=== PATIENT | female | born 1970 | race Caucasian/White ===

== ENCOUNTER 2016-12-13 14:26 | Observation (INO) | payer OTHER ==
[~2016-12-13] VITALS: Ht 160 cm; Wt 76.8 kg
[2016-12-13 15:12] LABS: HEMATOCRIT 39.2 % (36.0-46.0); MCH 27.9 PG (29.0-34.0); MCHC 32.9 G/DL (30.0-36.0); MCV 84.7 FL (83-99); MEAN PLAT.VOLUME 9.5 uM^3 (9.5-12.4); PLATELET COUNT 285 K/uL (156-360); RBC DIS.WIDTH-CV 12.4 % (11.8-14.6); RBC DIS.WIDTH-SD 37.6 % (39-53); RED BLOOD COUNT 4.63 M/uL (3.80-5.20); WHITE BLOOD COUNT 12.4 K/uL (4.1-10.2)
[2016-12-13 15:22] LABS: CHLORIDE 105 mEq/L (99-109); POTASSIUM 3.7 mEq/L (3.7-5.4); SODIUM 139 mEq/L (136-147)
[2016-12-13 15:23] LABS: GLUCOSE 96 mg/dL (70-99)
[2016-12-13 15:25] LABS: ANION GAP 12 MEQ/L (2-14)
[2016-12-13 15:27] LABS: GFR ESTIMATE (CALCULATED) 47 mL/min/
[2016-12-13 15:28] LABS: UREA NITROGEN (BUN) 21 mg/dL (9-23)
[2016-12-13 15:37] LABS: QUANTITATIVE HCG < 4.0 MIU/ML
[2016-12-13 16:59] LABS: ADD MIUA? YES; BILIRUBIN NEGATIVE; BLOOD MODERATE; COLOR YELLOW ((YELLOW)); GLUCOSE (STRIP) NEGATIVE; KETONES 80; LEUKOCYTES NEGATIVE; NITRITE NEGATIVE; PROTEIN (STRIP) 30; SPECIFIC GRAVITY 1.029 (1.000-1.030); UROBILINOGEN 0.2 MG/DL (0.2-1.0)
[2016-12-13 17:09] LABS: BACTERIA RARE /HPF; EPITHELIAL CELLS 2+ /HPF; MUCUS 1+ /LPF; RED BLOOD CELLS 15-20 /HPF (0-5); UCUL ADDED? YES
[2016-12-13] MEDS ORDERED: ONDANSETRON HCL4 MG PO (20:53)
[2016-12-13] MEDS ORDERED: LISINOPRIL10 MG PO (20:54)
[2016-12-13] MEDS ORDERED: ENDOCET 5-3251 EACH PO (20:54)
[2016-12-13 23:06] VITALS: BP 157/78
[2016-12-14 03:48] VITALS: BP 103/55
[2016-12-14 07:07] LABS: HEMATOCRIT 33.2 % (36.0-46.0); MCH 29.5 PG (29.0-34.0); MCV 86.7 FL (83-99); MEAN PLAT.VOLUME 9.6 uM^3 (9.5-12.4); PLATELET COUNT 240 K/uL (156-360); RBC DIS.WIDTH-CV 12.5 % (11.8-14.6); RBC DIS.WIDTH-SD 39.6 % (39-53); RED BLOOD COUNT 3.83 M/uL (3.80-5.20); WHITE BLOOD COUNT 8.3 K/uL (4.1-10.2)
[2016-12-14 07:32] LABS: ALKALINE PHOSPHATASE 44 IU/L (3-129); ANION GAP 5 MEQ/L (2-14); CHLORIDE 109 MEQ/L (99-109); GFR ESTIMATE (CALCULATED) > 59 mL/min/; GLUCOSE 85 mg/dL (70-99); POTASSIUM 3.8 MEQ/L (3.7-5.4); SAMPLE HEMOLYSIS CHECK 0; SAMPLE ICTERIC CHECK 0; SAMPLE LIPEMIA CHECK 0; SODIUM 139 MEQ/L (136-147); TOTAL BILIRUBIN 0.4 MG/DL (0.0-1.0); UREA NITROGEN (BUN) 15 mg/dL (9-23)
[2016-12-14 07:58] VITALS: BP 123/77
[2016-12-14 14:00] VITALS: BP 162/83
[2016-12-14 15:59] VITALS: BP 123/85
[2016-12-14] MEDS ORDERED: CIPRO500 MG PO (16:09)
== END 2016-12-14 16:19 | disposition home or self-care (01) ==
LOC: EME 14:26 → EDOF 21:27 → 2EAST 21:27 → ENRESERV 21:29 → 2EAST 22:57
PROVIDERS: Internal Medicine
DX: N13.2 Hydronephrosis with renal and ureteral calculous obstruction (principal); I10 Essential (primary) hypertension; Z80.0 Family history of malignant neoplasm of digestive organs
CPT/HCPCS: 74176; 80048; 80053; 81003; 84702; 85027; 87086; 99281; 99285; C1894; G0378; J0696; J1100; J1170; J1644; J1885; J2250; J2405; J3010; J7030; J7050; S0028